=== PATIENT | male | born 1995 | race Two or more races ===

== ENCOUNTER 2022-03-20 21:29 | Emergency (ER) | payer MEDICAID ==
[~2022-03-20] VITALS: Ht 172.7 cm; Wt 57.1 kg
[2022-03-21] MEDS ORDERED: HYDROCODON-ACE1 EA10 PO (00:16)
[2022-03-21] MEDS ORDERED: AMOX TR-K CLV1 EAC1 PO (00:17)
== END 2022-03-21 00:45 | disposition home or self-care (01) ==
LOC: ED 21:29
DX: S02.2XXA Fracture of nasal bones, initial encounter for closed fracture (principal); S43.401A Unspecified sprain of right shoulder joint, initial encounter; W18.2XXA Fall in (into) shower or empty bathtub, initial encounter
CPT/HCPCS: 12013; 70486; 73030; 99284-25; A9270; J2270; J2405